=== PATIENT | female | born 1975 | race Caucasian/White ===

== ENCOUNTER 2016-10-18 12:14 | Emergency (ER) | payer MEDICAID | END 2016-10-18 13:40 | disposition home or self-care (01) | LOC: D.ER 12:14 | DX: J01.90 Acute sinusitis, unspecified (principal); F17.200 Nicotine dependence, unspecified, uncomplicated ==

== ENCOUNTER 2018-07-11 09:52 | Emergency (ER) | payer SELFPAY ==
[2018-07-11] MEDS ORDERED: VOLTAREN75 MG PO (10:51)
[2018-07-11] MEDS ORDERED: AUGMENTIN 875-11 TAB PO (10:51)
[2018-07-11 11:02] VITALS: BP 125/68
== END 2018-07-11 11:03 | disposition home or self-care (01) ==
LOC: D.ER 09:52
DX: L03.116 Cellulitis of left lower limb (principal)

== ENCOUNTER 2018-08-11 18:10 | Emergency (ER) | payer SELFPAY ==
[~2018-08-11] VITALS: Ht 160 cm; Wt 77.3 kg
[~2018-08-11 18:10] MED LIST: AUGMENTIN 875-11 TAB PO; VOLTAREN75 MG PO
[2018-08-11 18:20] VITALS: Ht 160 cm; Wt 77.3 kg
[2018-08-11] MEDS ORDERED: KLONOPIN1 MG PO (18:22)
[2018-08-11] MEDS ORDERED: HYDROCODON-ACE1 EAC2 PO (18:22)
[2018-08-11] MEDS ORDERED: VITAMIN D5000 UNIT PO (18:23)
[2018-08-11] MEDS ORDERED: CELEXA40 MG PO (18:23)
[2018-08-11 19:14] VITALS: BP 127/87
--- NOTE | 2018-08-11 19:19 | NUR ---
DR WILSON NOTIFIED AND REVIEWED PT'S BEHAVIOR AND ASSESSMENT RESULTS. PT IS A LOW RISK PER DR WILSON. DR WILSON STATED TO GIVE RESOURCES TO PATIENT AT TIME OF DISCHARGE. NO FURTHER ORDERS AT THIS TIME. RESOURCES REVIEWED WITH PATIENT AND SHE VERBLIZED UNDERSTANDING. PATIENT HAS A VERY POSITIVE OUTLOOK ON LIFE AND "FACETIMES" WITH HER PHYSICIAN WEEKLY AND CONT TO BE MED COMPLIANT.
[2018-08-11] MEDS ORDERED: VOLTAREN75 MG PO (19:33)
[2018-08-11] MEDS ORDERED: BACLOFEN20 M1 PO (19:33)
== END 2018-08-11 19:31 | disposition other institution (70) ==
LOC: D.ER 18:10
DX: M79.604 Pain in right leg (principal); M79.671 Pain in right foot

== ENCOUNTER 2018-10-29 20:43 | Emergency (ER) | payer SELFPAY ==
[~2018-10-29] VITALS: Ht 160 cm; Wt 79.5 kg
[~2018-10-29 20:43] MED LIST changes: +BACLOFEN20 M1 PO; +CELEXA40 MG PO; +HYDROCODON-ACE1 EAC2 PO; +KLONOPIN1 MG PO; +VITAMIN D5000 UNIT PO
[2018-10-29 20:59] VITALS: Ht 160 cm; Wt 79.5 kg
[2018-10-29 22:08] LABS: BASOPHILS 0.3 % (0-2); EOSINOPHILS 1.7 % (0-7); HEMATOCRIT 43.4 % (36.0-48.0); HEMOGLOBIN 15.4 g/dL (12-16); IMMATURE GRANULOCYTES 0.3 % (0-5); LYMPHOCYTES 37.8 % (15-50); MCH 32.1 pg (26.0-34.0); MCHC 35.5 g/dL (31.0-37.0); MCV 90.4 fL (80.0-100.0); MEAN PLATELET VOLUME 10.3 fL (7.4-10.4); MONOCYTES 6.5 % (2-11); NEUTROPHILS 53.4 % (40-80); PLATELET COUNT 234 10x3/uL (130-400); RDW 12.8 % (11.5-14.5); WBC 10.4 10x3/uL (4.8-10.8)
[2018-10-29 22:17] LABS: INR 0.92 (0.85-1.17); PROTIME 11.9 SECONDS (11.6-15.0)
[2018-10-29 22:18] LABS: APTT 30.3 SECONDS (22.8-39.4)
[2018-10-29 22:28] LABS: ALBUMIN 3.4 g/dL (3.4-5.0); ALKALINE PHOSPHATASE 97 U/L (46-116); ALT (SGPT) 37 U/L (10-68); BILIRUBIN - TOTAL 0.16 mg/dL (0.2-1.3); CALC OSMOLALITY 271 mosm/kg (275-300); CALCIUM 9.1 mg/dL (8.5-10.1); CARBON DIOXIDE 25.8 mmol/L (21.0-32.0); CHLORIDE - SERUM 104 mmol/L (98-107); CREATININE - SERUM 0.4 mg/dL (0.6-1.3); GLUCOSE 102 mg/dL (74-106); POTASSIUM - SERUM 4.4 mmol/L (3.5-5.1); PROTEIN - SERUM 6.5 g/dL (6.4-8.2); SODIUM 136 mmol/L (136-145); UREA NITROGEN 13 mg/dL (7-18); eGFR NON AFRICAN AMERICAN > 90 mL/min (90-120)
[2018-10-29] MEDS ORDERED: ULTRAM50 MG PO (22:53)
[2018-10-29] MEDS ORDERED: ZANAFLEX2 M1 PO (22:53)
[2018-10-29] MEDS ORDERED: PREDNISONE10 MG PO (22:54)
[2018-10-29 23:05] VITALS: BP 115/81
== END 2018-10-29 23:05 | disposition home or self-care (01) ==
LOC: D.ER 20:43
PROVIDERS: Family Medicine
DX: S16.1XXA Strain of muscle, fascia and tendon at neck level, initial encounter (principal); S63.501A Unspecified sprain of right wrist, initial encounter; W11.XXXA Fall on and from ladder, initial encounter

== ENCOUNTER 2018-11-01 19:16 | Emergency (ER) | payer SELFPAY ==
[~2018-11-01] VITALS: Ht 160 cm; Wt 77.1 kg
[~2018-11-01 19:16] MED LIST changes: +PREDNISONE10 MG PO; +ULTRAM50 MG PO; +ZANAFLEX2 M1 PO
[2018-11-01 19:35] VITALS: Ht 160 cm; Wt 77.1 kg
[2018-11-01 20:27] LABS: BASOPHILS 0.3 % (0-2); EOSINOPHILS 1.2 % (0-7); HEMATOCRIT 43.3 % (36.0-48.0); HEMOGLOBIN 15.4 g/dL (12-16); IMMATURE GRANULOCYTES 0.2 % (0-5); LYMPHOCYTES 33.4 % (15-50); MCHC 35.6 g/dL (31.0-37.0); MCV 89.8 fL (80.0-100.0); MONOCYTES 5.1 % (2-11); NEUTROPHILS 59.8 % (40-80); PLATELET COUNT 232 10x3/uL (130-400); RBC 4.82 10x6/uL (4.00-5.40); RDW 12.8 % (11.5-14.5)
[2018-11-01 20:50] LABS: ALBUMIN 3.4 g/dL (3.4-5.0); ALKALINE PHOSPHATASE 92 U/L (46-116); ALT (SGPT) 32 U/L (10-68); BILIRUBIN - TOTAL 0.15 mg/dL (0.2-1.3); CALC OSMOLALITY 277 mosm/kg (275-300); CALCIUM 8.7 mg/dL (8.5-10.1); CARBON DIOXIDE 25.9 mmol/L (21.0-32.0); CHLORIDE - SERUM 104 mmol/L (98-107); CREATININE - SERUM 0.6 mg/dL (0.6-1.3); GLUCOSE 84 mg/dL (74-106); POTASSIUM - SERUM 3.8 mmol/L (3.5-5.1); PROTEIN - SERUM 6.9 g/dL (6.4-8.2); SODIUM 139 mmol/L (136-145); UREA NITROGEN 16 mg/dL (7-18); eGFR NON AFRICAN AMERICAN > 90 mL/min (90-120)
[2018-11-01] MEDS ORDERED: ZOFRAN8 MG PO (21:52)
[2018-11-01] MEDS ORDERED: BUTALB-APAP-CA1 EACH PO (21:52)
[2018-11-01 22:31] VITALS: BP 126/84
== END 2018-11-01 22:31 | disposition home or self-care (01) ==
LOC: D.ER 19:16
PROVIDERS: Emergency Medicine
DX: R51 Headache (principal); R55 Syncope and collapse; R11.2 Nausea with vomiting, unspecified